=== PATIENT | female | born 1975 | race Caucasian/White ===

== ENCOUNTER 2022-11-14 08:33 | Emergency (ER) | payer OTHER, SELFPAY ==
[2022-11-14 08:45] VITALS: BP 113/75; PULSE 78; RESP 14; TEMP 36.8; O2SAT 98
--- NOTE | 2022-11-14 08:49 | ED.URI ---
HPI - URI/Sore Throat General Chief Complaint: Upper Respiratory Infection Stated Complaint: eyes irritated, throat Source: patient and RN notes reviewed History of Present Illness HPI Narrative: 47 yo F presents to urgent care with complaints of congestion, bilateral ear pain, head pressure, and sore throat. Patient states she has been having these symptoms for the last 12 days. Patient states she woke up this morning with bilateral eye drainage. Denies any visual disturbance, fevers, chills, chest pain, shortness of breath, or vomiting. Patient has been taking Tylenol cold and flu as well as Claritin with no relief. Some parts of this dictation were generated by voice recognition software and may contain typographical and/or grammatical inaccuracies. Related Data Home Medications Medication Instructions Recorded Confirmed loratadine 10 mg tablet (Claritin) 10 mg PO DAILY 11/14/22 11/14/22 mirabegron 25 mg tablet,extended 25 mg PO DAILY 11/14/22 11/14/22 release 24 hr (Myrbetriq) Allergies Allergy/AdvReac Type Severity Reaction Status Date / Time Penicillins Allergy Rash Verified 11/14/22 08:56 Review of Systems Review of Systems: Pertinent positives and pertinent negatives per HPI. PMFSH Comments At the time of my signature, I reviewed and agree with the nursing past medical, surgical, social, and family history. There is no relevant family history pertinent to the patient complaint. Exam Narrative: GENERAL: This is a well-nourished, well-developed patient, in no apparent distress. HEAD: normocephalic, atraumatic. EYES: Sclera clear/white. Vision is grossly intact. EARS: External ears normal, auditory canals clear and without drainage, TMs normal without perforation. Hearing grossly intact. NOSE: External nose normal with no obvious nasal discharge, nares without redness, no rhinorrhea. THROAT: Mucous membranes moist, posterior pharynx clear. NECK: Neck supple, non-tender without lymphadenopathy, masses or thyromegaly. CARDIOVASCULAR: Regular rate RESPIRATORY: No respiratory distress SKIN: warm, intact with no suspicious lesions or rash, good texture and turgor. NEURO: awake, alert, and oriented to person, place and time. There were no obvious focal neurologic abnormalities. Course Course Level of Care: Express Care Visit Vital Signs Vital signs: Vital Signs Temperature 98.3 F 11/14/22 08:45 Pulse Rate 78 11/14/22 08:45 Respiratory Rate 14 11/14/22 08:45 Blood Pressure 113/75 11/14/22 08:45 Pulse Oximetry 98 11/14/22 08:45 Oxygen Delivery Room Air 11/14/22 08:45 Temperature 98.3 F 11/14/22 08:57 Pulse Rate 78 11/14/22 08:57 Respiratory Rate 14 11/14/22 08:57 Blood Pressure 113/75 11/14/22 08:57 Pulse Oximetry 98 11/14/22 08:57 Oxygen Delivery Room Air 11/14/22 08:57 Reviewed MDM - URI/Sore Throat MDM Narrative Medical decision making narrative: Go to the ER for any new or worsening symptoms. Avoid smoking/second-hand smoke. Continue to take Tylenol or Motrin for pain. Increase your Vitamin C intake. Use a humidifier or vaporizer at night. Take Medications as prescribed. Drink plenty of water. 8-10 glasses per day. Use flonase 2 times per day for 5 days then as needed Take mucinex 2 times per day and be sure to take with 8oz of water. Follow up with Primary provider if not getting better. Differential Diagnosis Differential diagnosis: Likely upper respiratory infection, otitis media, sinusitis and pharyngitis Lab Data Attestation: I reviewed the patient's lab results. Labs: Strep Screen Presumptive Negative *(Reference Range: Negative)* Critical Care Time Critical Care Time Critical Care Time: No Discharge Plan Discharge Clinical Impression: Sinusitis Qualifiers: Sinusitis location: unspecified location Chronicity: acute Recurrence: not specified as recurren
[2022-11-14 08:57] VITALS: BP 113/75; PULSE 78; RESP 14; TEMP 36.8; O2SAT 98
== END 2022-11-14 09:16 | disposition home or self-care (01) ==
PROVIDERS: Emergency Provider Nurse Practitioner Family
DX: J01.90 Acute sinusitis, unspecified (principal)
CPT/HCPCS: 87081; 87880; 99203; G0463